=== PATIENT | female | born 1945 | race Asian ===

== ENCOUNTER 2016-11-17 13:00 | Inpatient (IN) | payer MEDICARE, MEDICAID ==
[~2016-11-17] VITALS: Ht 149.9 cm; Wt 39.2 kg
[~2016-11-17 13:00] MED LIST: AMLO2.5T2 PO; ATEN25TA PO; ATOR10TA9 PO; CALCIUM PO; FISH OIL PO; GEMF600T3 PO; METF500T4 PO; MULT-709 PO; SILD20TA PO; SPIR25TA PO; VITAMIN D PO
[2016-11-17] MEDS ORDERED: SILD20TA PO (13:26)
[2016-11-17] MEDS ORDERED: GEMF600T3 PO (13:26)
[2016-11-17] MEDS ORDERED: METF500T4 PO (13:26)
[2016-11-17] MEDS ORDERED: SODIUM CHLORIDE 0.9% 1,000ML IVBOLUS ONE (14:00)
[2016-11-17] MEDS ORDERED: SODIUM CHLORIDE FLUSH 10ML SYR IVF ONE (14:00)
[2016-11-17 15:27] LABS: ASPARTATE AMINO TRANSFERASE 20 U/L (15-37); BLOOD UREA NITROGEN 24 mg/dL (7-18)
[2016-11-17] MEDS ORDERED: SODIUM BICARB 8.4%, 50ML SYRINGE IVPush ONE (16:00)
[2016-11-17] MEDS ORDERED: DEXTROSE 50%, 50ML SYRINGE IVPush ONE (16:00)
[2016-11-17] MEDS ORDERED: INSULIN REGULAR 100 UNITS/ML, 3ML VIAL IVPush ONE (16:00)
[2016-11-17] MEDS ORDERED: DEXTROSE 50%, 50ML SYRINGE ONE (16:01)
[2016-11-17] MEDS ORDERED: SODIUM BICARBONATE 1 MEQ/ML, 50ML VIAL ONE (16:02)
[2016-11-17] MEDS ORDERED: INSULIN SINGLE DOSE, ER SQ-INSULIN ONE (16:03)
[2016-11-17] MEDS ORDERED: SODIUM CHLORIDE 0.9% 1,000 ML IV ONE (16:11)
[2016-11-17] MEDS ORDERED: SODIUM CHLORIDE FLUSH 10ML SYR IVF PRN (16:30)
[2016-11-17] MEDS ORDERED: ONDANSETRON ODT 4 MG PO PRN (17:00)
[2016-11-17] MEDS ORDERED: SODIUM CHLORIDE 0.9% 1,000 ML IV SCH (17:00)
[2016-11-17] MEDS ORDERED: CALCIUM GLUCONATE 0.46MEQ/1ML IVPush ONE (18:00)
[2016-11-17 18:03] VITALS: BP 104/65
[2016-11-17] MEDS ORDERED: ENOXAPARIN 40 MG/0.4 ML SQ SCH (18:30)
[2016-11-17 18:49] LABS: BLOOD UREA NITROGEN 22 mg/dL (7-18)
[2016-11-17] MEDS: SILDENAFIL 20 MG TABLET PO SCH (21:00)
[2016-11-17] MEDS: ATORVASTATIN 10 MG TABLET PO SCH (21:23)
[2016-11-18 01:25] VITALS: BP 103/64
[2016-11-18 06:29] LABS: BLOOD UREA NITROGEN 20 mg/dL (7-18)
[2016-11-18 06:38] LABS: ASPARTATE AMINO TRANSFERASE 22 U/L (15-37)
[2016-11-18 07:44] VITALS: BP 114/63
[2016-11-18] MEDS: SILDENAFIL 20 MG TABLET PO SCH ×2 (07:59→21:00)
[2016-11-18] MEDS: GEMFIBROZIL 600 MG TABLET PO SCH (07:59)
[2016-11-18] MEDS: ATENOLOL 25 MG TABLET PO SCH (08:00)
[2016-11-18 14:04] VITALS: BP 107/69
[2016-11-18] MEDS: ENOXAPARIN 30 MG/0.3 ML SQ SCH (18:00)
[2016-11-18 19:27] VITALS: BP 102/63
[2016-11-18] MEDS: INSULIN ASPART 100 UNITS/ML, PEN SQ-INSULIN SCH (20:18)
[2016-11-18] MEDS: ATORVASTATIN 10 MG TABLET PO SCH (21:26)
[2016-11-19 00:48] VITALS: BP 104/69
[2016-11-19 05:47] LABS: BLOOD UREA NITROGEN 22 mg/dL (7-18)
[2016-11-19] MEDS: INSULIN ASPART 100 UNITS/ML, PEN SQ-INSULIN SCH ×4 (07:00→21:11)
[2016-11-19 08:35] VITALS: BP 104/70
[2016-11-19] MEDS: SILDENAFIL 20 MG TABLET PO SCH ×2 (09:00→21:10)
[2016-11-19] MEDS: ATENOLOL 25 MG TABLET PO SCH (09:33)
[2016-11-19] MEDS: GEMFIBROZIL 600 MG TABLET PO SCH (09:33)
[2016-11-19] MEDS: ACETAMINOPHEN 325 MG TABLET PO PRN ×2 (12:29→12:30)
[2016-11-19 13:44] VITALS: BP 99/61
[2016-11-19] MEDS: SODIUM CHLORIDE 0.9% 1,000 ML IV SCH (15:23)
[2016-11-19] MEDS: ENOXAPARIN 30 MG/0.3 ML SQ SCH (18:00)
[2016-11-19 20:58] VITALS: BP 114/71
[2016-11-19] MEDS: ATORVASTATIN 10 MG TABLET PO SCH (21:09)
[2016-11-20 00:33] VITALS: BP 109/71
[2016-11-20] MEDS: SODIUM CHLORIDE 0.9% 1,000 ML IV SCH (04:20)
[2016-11-20 05:30] LABS: BLOOD UREA NITROGEN 21 mg/dL (7-18)
[2016-11-20 06:46] VITALS: BP 123/79
[2016-11-20] MEDS: INSULIN ASPART 100 UNITS/ML, PEN SQ-INSULIN SCH (07:00)
[2016-11-20] MEDS: SILDENAFIL 20 MG TABLET PO SCH (08:02)
[2016-11-20] MEDS: ATENOLOL 25 MG TABLET PO SCH ×2 (08:02→08:05)
[2016-11-20] MEDS: GEMFIBROZIL 600 MG TABLET PO SCH (08:02)
[2016-11-20] MEDS ORDERED: FURO20TA3 PO (10:08)
== END 2016-11-20 12:35 | disposition home or self-care (01) | DRG 641 ==
LOC: ED 16:07 → EDIP 16:11 → 4EST 18:08 → DCLOUNGE 11-20 12:10
PROVIDERS: ADMIT Family Medicine; ATTEND Internal Medicine
DX: E87.5 Hyperkalemia (principal); R19.7 Diarrhea, unspecified; I27.2 Other secondary pulmonary hypertension; D72.829 Elevated white blood cell count, unspecified; I10 Essential (primary) hypertension; I07.1 Rheumatic tricuspid insufficiency; E78.5 Hyperlipidemia, unspecified; E78.00 Pure hypercholesterolemia, unspecified; E86.0 Dehydration; E11.649 Type 2 diabetes mellitus with hypoglycemia without coma; Z79.84 Long term (current) use of oral hypoglycemic drugs; Z79.899 Other long term (current) drug therapy
CPT/HCPCS: 36415; 74020; 80048; 80053; 81003; 82150; 82962; 83690; 84132; 85025; 87324; 89055; 93005; 96361; 96374; 96375; J0610; J1815; J7030

== ENCOUNTER → 2017-12-20 | Outpatient (CLI) | payer MEDICARE, MEDICAID ==
[~2017-12-20] MED LIST changes: +FURO20TA3 PO
== END | disposition home or self-care (01) ==
LOC: CVU 08:29
PROVIDERS: ATTEND Internal Medicine Cardiovascular Disease
DX: I08.2 Rheumatic disorders of both aortic and tricuspid valves (principal); E78.5 Hyperlipidemia, unspecified; R06.02 Shortness of breath
CPT/HCPCS: 93306

== ENCOUNTER 2018-06-13 10:54 | Emergency (ER) | payer MEDICARE, MEDICAID ==
[~2018-06-13] VITALS: Ht 149.9 cm; Wt 40.0 kg
[~2018-06-13 10:54] MED LIST changes: -GEMF600T3 PO; +GEMF600T4 PO; +METF500T17 PO; -METF500T4 PO
[2018-06-13 11:46] LABS: BASOPHILS # (AUTO) 0.02 x10^3/uL (0-0.1); BASOPHILS % (AUTO) 0 % (0-1); EOSINOPHILS # (AUTO) 0.23 x10^3/uL (0-0.4); EOSINOPHILS % (AUTO) 4 % (1-7); LYMPHOCYTES # (AUTO) 1.86 x10^3/uL (1-3.4); LYMPHOCYTES % (AUTO) 30 % (22-44); MD NO; MEAN CORPUSCULAR HEMOGLOBIN 32.2 pg (27.0-34.8); MEAN CORPUSCULAR HGB CONC 34.6 g/dL (32.4-35.8); MEAN CORPUSCULAR VOLUME 93.1 fL (80-100); MEAN PLATELET VOLUME 6.9 fL (7.4-10.4); MONOCYTES # (AUTO) 0.62 x10^3/uL (0.2-0.8); MONOCYTES % (AUTO) 10 % (2-9); NEUTROPHILS % (AUTO) 56 % (42-75); PLATELET COUNT 290 x10^3/uL (130-400); RED BLOOD COUNT 4.45 x10^6/uL (3.82-5.3); RED CELL DISTRIBUTION WIDTH 11.7 % (9.6-15.2)
[2018-06-13] MEDS ORDERED: METO-282 PO (11:46)
[2018-06-13] MEDS ORDERED: ASPI-496 PO (11:46)
[2018-06-13] MEDS ORDERED: ASCO500T8 PO (11:47)
[2018-06-13 11:53] VITALS: BP 128/86
[2018-06-13 12:02] LABS: ALANINE AMINOTRANSFERASE 24 U/L (12-78); ALBUMIN 4.6 g/dL (3.4-5.0); ANION GAP 7 mmol/L (5-15); CALCIUM 9.4 mg/dL (8.5-10.1); CHLORIDE 96 mmol/L (98-107); CREATININE 1.17 mg/dL (0.55-1.02)
[2018-06-13 12:07] LABS: ALKALINE PHOSPHATASE 57 U/L (45-117); BILIRUBIN,TOTAL 0.5 mg/dL (0.2-1.0); T4 (THYROXINE) 11.3 mcg/dL (4.8-13.9); TOTAL PROTEIN 8.9 g/dL (6.4-8.2); TROPONIN I < 0.015 ng/mL (0.000-0.045)
== END 2018-06-13 13:17 | disposition home or self-care (01) ==
LOC: ED 12:57
DX: R00.2 Palpitations (principal); E78.5 Hyperlipidemia, unspecified; I27.21 Secondary pulmonary arterial hypertension
CPT/HCPCS: 36415; 71046; 80053; 84436; 84443; 84484; 85025; 93005; 99284

== ENCOUNTER 2019-02-27 08:29 | Outpatient (CLI) | payer MEDICARE, MEDICAID | END 2019-02-27 23:59 | disposition home or self-care (01) | LOC: CFH 08:29 | PROVIDERS: ATTEND Internal Medicine Cardiovascular Disease | DX: I08.8 Other rheumatic multiple valve diseases (principal); I27.0 Primary pulmonary hypertension; E78.5 Hyperlipidemia, unspecified; E11.9 Type 2 diabetes mellitus without complications | CPT/HCPCS: 93306 ==

== ENCOUNTER 2020-11-01 10:17 | Outpatient (CLI) | payer MEDICARE, MEDICAID ==
[~2020-11-01 10:17] MED LIST changes: +ASCO500T8 PO; +ASPI-496 PO; +GEMF-31 PO; -GEMF600T4 PO; +METO-282 PO
== END 2020-11-01 23:59 | disposition home or self-care (01) ==
LOC: CFH 10:17
PROVIDERS: ATTEND Internal Medicine Cardiovascular Disease
DX: M95.4 Acquired deformity of chest and rib (principal)
CPT/HCPCS: 71046